=== PATIENT | female | born 1990 | race Two or more races ===

== ENCOUNTER 2017-08-10 16:07 | Emergency (ER) | payer MEDICAID ==
[~2017-08-10] VITALS: Ht 162.6 cm; Wt 65.8 kg
[2017-08-10 16:39] VITALS: BP 126/91
== END 2017-08-10 17:47 | disposition home or self-care (01) ==
LOC: ER 16:18
DX: J45.909 Unspecified asthma, uncomplicated (principal); Z76.0 Encounter for issue of repeat prescription

== ENCOUNTER 2019-05-07 15:57 | Emergency (ER) | payer MEDICAID ==
[~2019-05-07] VITALS: Ht 162.6 cm; Wt 71.7 kg
[2019-05-07 16:10] VITALS: BP 140/78
[2019-05-07 16:39] LABS: Urine Bacteria FEW /hpf (None Seen); Urine Blood Negative /uL (Negative); Urine Mucus MODERATE (None Seen); Urine Specific Gravity 1.029 (1.001-1.035); Urine WBC 9 /hpf (0 - 5)
== END 2019-05-07 17:59 | disposition left against medical advice (07) ==
LOC: ER 16:03
DX: M79.606 Pain in leg, unspecified (principal); Z53.21 Procedure and treatment not carried out due to patient leaving prior to being seen by health care provider
CPT/HCPCS: 36415; 81001; 84702